=== PATIENT | female | born 1985 | race Caucasian/White ===

== ENCOUNTER 2018-05-09 06:16 | Inpatient (IN) | payer OTHER ==
[~2018-05-09 06:16] MED LIST: Buffered Lidocaine 0.9% SYRIN* 5 ML/SYR SYRINGE INTRADERM ONE; Lactated Ringers 1000 ML Bag* 1,000 ML IV SCH; Sodium Citrate/Citric Acid* 15 ML UDC PO ONE
[2018-05-09] MEDS ORDERED: Morphine PF AMP (0.5MG/ML)* 5 MG/10 ML AMP ONE (07:35)
[2018-05-09] MEDS ORDERED: Bupivacaine-MPF SPINAL* 7.5 MG/ML - 2ML AMP ONE (07:35)
[2018-05-09] MEDS ORDERED: ceFOXitin 2 GM IVPREMIX* 2 GM/50 ML BAG IVPB ONE (07:39)
[2018-05-09] MEDS ORDERED: ceFOXitin 2 GM IVPREMIX* 2 GM/50 ML BAG ONE (07:47)
[2018-05-09] MEDS ORDERED: Glycerin ADULT SUPP PR PRN (07:48)
[2018-05-09] MEDS ORDERED: Acetaminophen TAB* 325 MG PO PRN (07:48)
[2018-05-09] MEDS ORDERED: Witch Hazel PAD* JAR TOPICAL PRN (07:48)
[2018-05-09] MEDS ORDERED: Dibucaine 1% 28.35 GM TUBE PR PRN (07:48)
[2018-05-09] MEDS ORDERED: oxyCODONE/Acetamin 5/325 MG* TAB PO PRN ×3 (07:48→09:00)
[2018-05-09] MEDS ORDERED: Lactated Ringers 1000 ML Bag* 1,000 ML IV SCH (08:00)
[2018-05-09] MEDS ORDERED: Oxytocin in LR* 20 UNITS/1,000 ML BAG IVPB SCH (08:00)
[2018-05-09] MEDS ORDERED: OXYTOCIN* 10 UNITS/ML 1 ML VIAL ONE ×2 (08:25→08:43)
[2018-05-09] MEDS ORDERED: Phenylephrine INJ* 10 MG/ML 1 ML VIAL (10 MG) ONE (08:25)
[2018-05-09] MEDS ORDERED: Ondansetron INJ* 2 MG/ML VIAL ONE (08:25)
[2018-05-09] MEDS ORDERED: Naloxone* 0.4 MG/ML 1 ML VIAL IV PRN ×2 (08:59→09:00)
[2018-05-09] MEDS ORDERED: fentaNYL* 50 MCG/ML 2 ML VIAL (100 MCG VIAL) IV PRN (08:59)
[2018-05-09] MEDS ORDERED: Ondansetron INJ* 2 MG/ML VIAL IV PRN (09:00)
[2018-05-09] MEDS ORDERED: Nalbuphine* 10 MG/ML 1 ML VIAL IV PRN (09:00)
[2018-05-09] MEDS ORDERED: Naloxone* 2 MG in NS 0.9% 250 ML* 250 ML IV PRN (09:00)
[2018-05-09] MEDS ORDERED: DiMENhydriNATE IV* 50 MG/ML VIAL IV PUSH PRN (09:00)
[2018-05-09] MEDS: Ketorolac INJ* 30 MG/ML 1 ML VIAL IV PRN ×3 (11:11→23:14)
[2018-05-09] MEDS: Docusate CAP* 100 MG PO SCH ×3 (13:52→20:20)
[2018-05-09] MEDS: Simethicone TAB* 80 MG TAB.CHEW PO SCH ×4 (13:52→20:20)
--- NOTE | 2018-05-09 21:04 | OP ---
DATE OF OPERATION: 05/09/18 - ROOM #118 DATE OF : 85 SURGEON: Jazz Espana MD FUDGER: Dr. Riddhi Campbell. SECOND ANIMAL ECOLOGIST: Brittni Dos Santos CNM ANESTHESIOLOGIST: Dr. Arreola. ANESTHESIA: Spinal. PRE-OP DIAGNOSIS: Intrauterine at 39 weeks, desires repeat section. POST-OP DIAGNOSIS: Intrauterine at 39 weeks, desires repeat section, delivered. OPERATIVE PROCEDURE: Repeat low transverse section and vacuum extraction. ESTIMATED BLOOD LOSS: 500 cc. URINE OUTPUT: 100 cc of concentrated yellow urine. FLUIDS: 2600 cc of crystalloid. FINDINGS: Revealed a vertex female with Apgars 8 at 1 minute and 9 at 5 minutes. Nuchal cord x1. Normal-appearing tubes and ovaries bilaterally. Normal uterine cavity without evidence of membranes with placental tissue retained. Placenta manually extracted, three-vessel cord intact. COMPLICATIONS: None apparent. DISPOSITION: Stable to recovery room. DESCRIPTION OF PROCEDURE: The patient was placed in the dorsal lithotomy position. The abdomen was prepped and draped in a sterile standard fashion. The patient was identified with universal protocol for correct procedure, position, and patient. After confirming excellent level of anesthesia, an incision was made with a scalpel blade to prior incisional site. This was carried down through to the fascia. The fascia was scored in the midline and extended laterally and superiorly using curved Laguerre scissors. This was done on the right and then the left side. The fascia was sharply from the rectus muscle superiorly and inferiorly with blunt and sharp dissection. The peritoneum was then entered sharply with Metzenbaum scissors. The incision was extended bluntly. Bladder blade was inserted. Lower uterine segment was identified and again noted the layers were very attenuated and thin. An incision was made with a scalpel. Amniotomy was created for clear fluid. Incision was extended laterally and superiorly using bandage scissors. Infant was delivered with vacuum extraction after one attempt was made for delivery. The vacuum was applied once and had delivered. Nuchal cord was reduced. Anterior, then posterior shoulder delivered. Cord was allowed to pulse 60 seconds and milked, clamped, and then cut, and then the was handed off to awaiting supervisor orchard, Dr. Roberts. Appropriate cord blood was obtained. The placenta was then manually extracted. The uterus was exteriorized. The cavity was wiped clean and noted to be free of any membranes or placental tissue. The uterine incision itself was reapproximated. There was a small extension on the right side, which was incorporated into the uterine incision closure for first layer running locked 0 Vicryl, the second layer was 0 imbricated. The extension was reapproximated separately using a figure-of- eight. The uterus was returned intraabdominally after clearly visualizing normal tubes and ovaries. Colic gutters were lavaged. Hemostasis was assured at the hysterotomy site. The peritoneum was then clamped with Trista and reapproximated using 3-0 Vicryl in a running fashion. The subcutaneous tissue and subfascial tissue was visualized and noted to be hemostatic. The fascia itself was reapproximated using 0 Vicryl x2 in a running fashion. Subcu was lavaged. Hemostasis assured again and the Camper's fascia was reapproximated using a 3-0 Vicryl in an interrupted fashion. The skin was then reapproximated using 4-0 Monocryl in a subcuticular fashion. Mastisol and then Steri's were applied. All sponge, needle, instrument, and blade counts were correct throughout the case. The patient tolerated the procedure well and went to recovery room in stable condition. [id number] #: [id number]
[2018-05-10] MEDS ORDERED: oxyCODONE/Acetamin 5/325 MG* TAB PO PRN
[2018-05-10] MEDS: Ketorolac INJ* 30 MG/ML 1 ML VIAL IV PRN (05:33)
[2018-05-10 05:54] LABS: ABS Basophils 0.1 10^3/ul (0-0.2); ABS Eosinophils 0.1 10^3/ul (0-0.6); ABS Lymphocytes 2.2 10^3/ul (1.0-4.8); ABS Monocytes 0.8 10^3/ul (0-0.8); ABS Neutrophils 9.7 10^3/ul (1.5-7.7); ABS Nucleated RBC 0 10^3/ul; Eosinophil % 0.9 %; Hematocrit 30 % (35-47); Hemoglobin 9.5 g/dl (12.0-16.0); Mean Corpuscular HGB Conc 32 g/dl (31-36); Mean Corpuscular Hemoglobin 25 pg (27-31); Mean Corpuscular Volume 77 fL (80-97); Mean Platelet Volume 8.6 fL (7.4-10.4); Nucleated Red Blood Cells % 0; Platelet Count 216 10^3/ul (150-450); Red Blood Count 3.83 10^6/ul (4.00-5.40); Red Cell Distribution Width 15 % (10.5-15); White Blood Count 12.9 10^3/ul (3.5-10.8)
[2018-05-10] MEDS: Simethicone TAB* 80 MG TAB.CHEW PO SCH ×4 (09:00→21:49)
[2018-05-10] MEDS: Docusate CAP* 100 MG PO SCH ×3 (09:00→21:49)
[2018-05-10] MEDS: Ferrous Gluconate TAB* 324 MG TAB PO SCH ×2 (09:00→21:49)
[2018-05-10] MEDS: Ibuprofen TAB* 600 MG PO PRN ×2 (12:30→18:32)
[2018-05-10] MEDS: oxyCODONE/Acetamin 5/325 MG* TAB PO PRN ×2 (14:26→21:52)
[2018-05-11] MEDS: Ibuprofen TAB* 600 MG PO PRN ×3 (01:04→13:33)
[2018-05-11] MEDS: Ferrous Gluconate TAB* 324 MG TAB PO SCH (08:12)
[2018-05-11] MEDS: oxyCODONE/Acetamin 5/325 MG* TAB PO PRN ×2 (08:12→13:32)
[2018-05-11] MEDS: Docusate CAP* 100 MG PO SCH ×2 (08:12→13:33)
[2018-05-11] MEDS: Simethicone TAB* 80 MG TAB.CHEW PO SCH ×2 (08:12→13:33)
[2018-05-11 10:27] VITALS: BP 122/80
== END 2018-05-11 13:50 | disposition home or self-care (01) | DRG 540 ==
LOC: MCHOB 06:16
PROVIDERS: ADMIT Obstetrics & Gynecology; ATTEND Obstetrics & Gynecology
PROC: 10D00Z1 Extraction of Products of Conception, Low, Open Approach (ICD-10-PCS; principal; 2018-05-09 07:45)
DX: O34.211 Maternal care for low transverse scar from previous cesarean delivery (principal); O69.81X0 Labor and delivery complicated by cord around neck, without compression, not applicable or unspecified; Z3A.39 39 weeks gestation of pregnancy; Z37.0 Single live birth
CPT/HCPCS: 36415; 85025; A9270-GY; J0694; J1240; J1885; J2405; J2590

== ENCOUNTER 2022-01-04 14:11 | Observation (INO) ==
[2022-01-04 14:48] LABS: ABS Lymphocytes 1.5 10^3/ul (1.0-4.8); ABS Monocytes 0.5 10^3/ul (0-0.8); ABS Neutrophils 7.2 10^3/ul (1.5-7.7); Eosinophil % 0.4 %; Hematocrit 39 % (35-47); Hemoglobin 12.7 g/dL (12.0-16.0); Lymphocyte % 16.7 %; Mean Corpuscular HGB Conc 33 g/dL (31-36); Mean Corpuscular Hemoglobin 26 pg (27-31); Mean Corpuscular Volume 79 fL (80-97); Mean Platelet Volume 8.4 fL (7.4-10.4); Nucleated Red Blood Cells % 0.1; Platelet Count 236 10^3/uL (150-450); Red Blood Count 4.94 10^6 /uL (3.70-4.87); Red Cell Distribution Width 15 % (10-15); White Blood Count 9.3 10^3/uL (3.5-10.8)
[2022-01-04 14:55] LABS: INR 0.99 (0.89-1.11)
[2022-01-04 15:37] LABS: ALT 22 U/L (7-52); AST 22 U/L (13-39); Albumin 4.5 g/dL (3.2-5.2); Albumin/Globulin Ratio 1.6 (1-3); Alkaline Phosphatase 68 U/L (35-149); Anion Gap 8 mmol/L (2-11); Blood Urea Nitrogen 11 mg/dL (6-24); CO2 Carbon Dioxide 24 mmol/L (22-32); Calcium 9.7 mg/dL (8.6-10.3); Chloride 105 mmol/L (101-111); Globulin 2.8 g/dL (2-4); Glucose 100 mg/dL (70-100); Potassium 4.1 mmol/L (3.5-5.0); Sodium 137 mmol/L (135-145); Total Protein 7.3 g/dL (6.4-8.9)
[2022-01-04 15:44] LABS: HCG Pregnancy < 0.60 mIU/mL
[2022-01-04] MEDS ORDERED: Iohexol 350 (CONTRAST) 500 ML MDV IV ONE (18:43)
[2022-01-04 19:04] LABS: Activated Partial Thrombo Time 32.1 seconds (26.0-38.0)
[2022-01-04 19:16] LABS: C Reactive Protein 1.17 mg/L (<8.01); Cholesterol 135 mg/dL; HDL Cholesterol 71.8 mg/dL; LDL Cholesterol 53 mg/dL; Triglycerides 53 mg/dL
[2022-01-04 20:25] LABS: Erythrocyte Sed Rate 2 mm/Hr (0-19)
[2022-01-04 20:28] LABS: Urine Benzodiazepine Screen None Detected (None Detect); Urine Cannabinoids Screen None Detected (None Detect); Urine Opiates Screen None Detected (None Detect)
[2022-01-04 22:27] LABS: Urine Benzodiazepine Screen None Detected (None Detect); Urine Buprenorphine Screen None Detected (None Detect); Urine Cannabinoids Screen None Detected (None Detect); Urine Fentanyl Screen None Detected (None Detect); Urine Hydrocodone Screen None Detected (None Detect); Urine Opiates Screen None Detected (None Detect)
[2022-01-05 11:54] VITALS: BP 115/66
== END 2022-01-05 13:20 | disposition home or self-care (01) ==
LOC: ED 14:11 → EDHOLD 14:11 → SUATTDRO 21:01 → EDHOLD 01-05 00:05 → MEDTELE 01-05 00:10
PROVIDERS: ADMIT Hospitalist; ATTEND Internal Medicine